=== PATIENT | male | born 1975 | race Caucasian/White ===

== ENCOUNTER 2022-10-28 09:50 | Emergency (ER) | payer BC, SELFPAY ==
[2022-10-28 09:55] VITALS: BP 172/89; PULSE 88; RESP 18; TEMP 36.7; O2SAT 95; BMI 42.7
--- NOTE | 2022-10-28 10:03 | ECG_ITS ---
The [facility] Test Date: 2022-10-28 Pat Name: PORTIA ZAIDI Department: Room: - Gender: Male [employer]: : 1975 Requested By: CRISELDA ALLRED Order Number: [id number] Reading MD: IAN MCCOLLUM Measurements Intervals [place] Rate: 84 P: 23 ID: [id number] QRS: 48 QRSD: 100 T: 51 QT: 364 QTc: 405 Interpretive Statements 1100 Sinus rhythm 2440 Incomplete right bundle branch block 7300 Indeterminate axis 9130 borderline ECG No previous ECG available for comparison Electronically Signed On 10-29-2022 7:18:53 EDT by IAN MCCOLLUM
--- NOTE | 2022-10-28 10:03 | XR_ITS ---
The [address] [address] Patient Name: PORTIA ZAIDI MRN: [id number] date: 1975 Sex: M Assigned Patient Location: ER Current Patient Location: ER Accession/Order Number: [id number] Exam Date: 10/28/2022 10:15 Report Date: 10/28/2022 10:29 At the request of: JARAD CHAVEZ Procedure: XR chest 1V EXAMINATION: XR chest 1V HISTORY: cp ; chest pain COMPARISON: XR chest 05/23/2021 FINDINGS: LUNGS: No significant pulmonary parenchymal abnormalities. VASCULATURE: No increased pulmonary vasculature. PLEURA: No pneumothorax, effusion, or pleural thickening. CARDIAC: No cardiomegaly or cardiac silhouette abnormality. MEDIASTINUM: No visible mass or adenopathy. BONES: No fracture or visible bone lesion. OTHER: Negative. XR/XR chest 1V IMPRESSION: 1. No acute cardiopulmonary process. Electronically authenticated by: PACHECO CLARK Date: 10/28/2022 10:29
--- NOTE | 2022-10-28 10:10 | ED_ITS ---
HPI - Chest Pain General Chief Complaint: Chest Pain Stated Complaint: POSS CARDIAC ISSUES Time Seen by Provider: 10/28/22 10:03 Source: patient Mode of arrival: walk-in History of Present Illness HPI narrative: Patient have history of diabetes type 2 is coming to the ER with 1 week history of chest pressure that comes and goes he mentioned that the pressure usually comes at night and taking deep breaths sometimes help with the pressure he denies any nausea vomiting or any difficulty breathing or coughing or any relation to movement He mentioned that he have a physical work usually and he is standing on his feet for some time he noticed some ankle swelling The patient also mentioned having some loose stool over the last week but no frequency and the patient denies any cardiac family history and he also denies any smoking cigarette history Related Data Home Medications Medication Instructions Recorded Confirmed ibuprofen 800 mg tablet 800 mg PO Q12H 10/28/22 10/28/22 lisinopril 10 mg tablet 10 mg PO QDAY 10/28/22 10/28/22 metformin 500 mg tablet 500 mg PO BID 10/28/22 10/28/22 Previous Rx's Medication Instructions Recorded famotidine 20 mg tablet (Pepcid) 20 mg PO BID #20 tabs 10/28/22 Allergies Allergy/AdvReac Type Severity Reaction Status Date / Time No Known Drug Allergies Allergy Verified 10/28/22 09:55 Review of Systems ROS Status of ROS 10 or more systems reviewed and unremarkable except as noted in history and below [facility] Medical History (Updated 10/28/22 @ 11:13 by Francoise Farias MD) Exam Narrative Exam Narrative: Nurses notes and vital signs reviewed and patient is not hypoxic. General: Well-appearing and in no apparent distress. Skin: Warm, dry, no pallor noted. No rash. Head: Normocephalic, atraumatic. Neck: Supple, non-tender. Eye: Pupils are equal, round and EOMI. No scleral icterus. Ears, Nose, Mouth, and Throat: TM are clear, no nasal mucosal hypertrophy. Oral mucosa is moist, no posterior oropharynx erythema, uvula is mid-line Cardiovascular: Regular Rate and Rhythm without murmur, gallop or rub. Respiratory: No accessory muscle use or respiratory distress. Lungs are clear to auscultation, no wheezing, rales or rhonchi Chest Wall: no tenderness Back: No midline thoracic or lumbar vertebral tenderness. No CVA tenderness Musculoskeletal: normal ROM, no calf or popliteal tenderness, no lower extremity edema/swelling GI: Abdomen is soft, non-distended. Normal bowel sounds. No masses appreciated. No tenderness to palpation. No rebound, guarding, or rigidity noted. Neurological: A&O x4. No cranial nerve dysfunction observed. No truncal ataxia. Moves all extremities. Sensation intact. Psychiatric: Cooperative and interactive. Normal mood and affect. Constitutional Vital Signs, click to edit/add: Last Vital Signs Temp 98.1 F 10/28/22 09:55 Pulse 88 10/28/22 09:55 Resp 18 10/28/22 09:55 BP 172/89 H 10/28/22 09:55 Pulse Ox 95 10/28/22 09:55 Course Vital Signs Vital signs: Vital Signs Temperature 98.1 F 10/28/22 09:55 Pulse Rate 88 10/28/22 09:55 Respiratory Rate 18 10/28/22 09:55 Blood Pressure 172/89 H 10/28/22 09:55 Pulse Oximetry 95 10/28/22 09:55 Temperature 98.1 F 10/28/22 09:55 Pulse Rate 88 10/28/22 09:55 Respiratory Rate 18 10/28/22 09:55 Blood Pressure 172/89 H 10/28/22 09:55 Pulse Oximetry 95 10/28/22 09:55 MDM - Chest Pain MDM Narrative Medical decision making narrative: The patient EKG showing sinus rhythm with a heart rate of [address] elevation or depression The patient CBC and chemistry showed no acute pathology his blood pressure was 140 systolic in the ER in another reading The patient troponin was negative and he was not actually having any pain right now The patient mentioned that the pain was after eating dinner last night and his presentation is mostly secondary to atypical acid reflux related pain Right now the patient was instructed about his risk factors including hyperlipidemia and morbid obesity and the fact that he need to follow-up with his primary care doctor for further evaluation management with the cardiac risk factors and he is to come back to the ER in case of any symptoms but he will be started on Pepcid with lifestyle modification advised to the patient The patient is to follow up with primary care physician in next 2-3 days or to return to the emergency department should any of the signs or symptoms worsen or new symptoms develop. The patient agrees with the following Diagnosis and Treatment plan and the patient will be discharged home. Lab Data Labs: Lab Results 10/28/22 Range/Units 10:12 WBC 8.7 (4.0-11.0) 10^3/uL RBC 4.77 (4.70-6.10) 10^6/uL Hgb 13.0 L (14.0-18.0) g/dL Hct 39.2 L (42.0-54.0) % MCV 82.2 (80.0-94.0) fL MCH 27.3 (25.9-34.0) pg MCHC 33.2 (29.9-35.2) g/dL RDW 13.9 (11.0-15.0) % Plt Count 267 (150-450) 10^3/uL MPV 10.0 (9.5-13.5) fL Neut % (Auto) 64.8 (43.0-75.0) % Lymph % (Auto) 22.3 (20.5-60.0) % [place] % (Auto) 7.0 (1.7-12.0) % Eos % (Auto) 4.6 (0.9-7.0) % Baso % (Auto) 0.6 (0.2-2.0) % Neut # (Auto) 5.7 (1.4-6.5) 10^3/uL Lymph # (Auto) 2.0 (1.2-3.8) 10^3/uL [place] # (Auto) 0.6 (0.3-0.8) 10^3/uL Eos # (Auto) 0.4 (0.0-0.7) 10^3/uL Baso # (Auto) 0.1 (0.0-0.1) 10^3/uL Abs Immat Gran (auto) 0.06 H (0.00-0.03) 10^3/uL Imm/Tot Granulo (auto) 0.7 H (0.0-0.5) % PT 10.1 (9.0-11.6) sec INR 0.95 Sodium 136 (136-145) mmol/L Potassium 4.4 (3.5-5.1) mmol/L Chloride 102 (98-107) mmol/L Carbon Dioxide 27.1 (21.0-32.0) mmol/L Anion Gap 11.3 BUN 10.0 (7.0-18.0) mg/dL Creatinine 0.72 (0.70-1.30) mg/dL Est GFR ( Amer) >60 (>=60) Est GFR (Non-Af Amer) >60 (>=60) BUN/Creatinine Ratio 13.9 Glucose 147 H (74-106) mg/dL Calcium 8.8 (8.5-10.1) mg/dL Total Bilirubin 0.3 (0.2-1.0) mg/dL AST 26 (15-37) U/L ALT 37 (16-63) U/L Alkaline Phosphatase 116 (46-116) U/L Troponin I High Sens 11.8 (4.0-76.1) pg/mL Total Protein 7.5 (6.4-8.2) g/dL Albumin 3.4 (3.4-5.0) g/dL Globulin 4.1 g/dL Albumin/Globulin Ratio 0.8 Discharge Plan Discharge Chief Complaint: Chest Pain Clinical Impression: Chest pain due to GERD Patient Disposition: Home, Self-Care Time of Disposition Decision: 11:12 Condition: Good Mode of Transportation: Private Vehicle Prescriptions / Home Meds: New famotidine [Pepcid] 20 mg tablet 20 mg PO BID Qty: 20 0RF No Action ibuprofen 800 mg tablet 800 mg PO Q12H metformin 500 mg tablet 500 mg PO BID lisinopril 10 mg tablet 10 mg PO QDAY Instructions: GERD (Gastroesophageal Reflux Disease) (ED), Esophageal Spasm (ED) Stand Alone Forms: Portal Instructions Referrals: CRISELDA ALLRED [Primary Care Provider] - 1 week
[2022-10-28 10:37] LABS: Basophils Absolute Auto 0.1 10^3/uL (0.0-0.1); Basophils Percent Auto 0.6 % (0.2-2.0); Eosinophils Absolute Auto 0.4 10^3/uL (0.0-0.7); Eosinophils Percent Auto 4.6 % (0.9-7.0); Hematocrit 39.2 % (42.0-54.0); Immature Granulocytes Abs Auto 0.06 10^3/uL (0.00-0.03); Immature Granulocytes Pct Auto 0.7 % (0.0-0.5); Lymphocytes Percent Auto 22.3 % (20.5-60.0); Mean Corpuscular HGB Conc 33.2 g/dL (29.9-35.2); Mean Corpuscular Hemoglobin 27.3 pg (25.9-34.0); Mean Corpuscular Volume 82.2 fL (80.0-94.0); Monocytes Absolute Auto 0.6 10^3/uL (0.3-0.8); Neutrophils Absolute Auto 5.7 10^3/uL (1.4-6.5); Neutrophils Percent Auto 64.8 % (43.0-75.0); Platelet Count 267 10^3/uL (150-450); Red Blood Count 4.77 10^6/uL (4.70-6.10); Red Cell Distribution Width 13.9 % (11.0-15.0); White Blood Count 8.7 10^3/uL (4.0-11.0)
[2022-10-28 10:43] LABS: Alanine Aminotransferase 37 U/L (16-63); Albumin Globulin Ratio 0.8; Albumin Level 3.4 g/dL (3.4-5.0); Alkaline Phosphatase 116 U/L (46-116); Anion Gap 11.3; Aspartate Amino Transferase 26 U/L (15-37); BUN Creatinine Ratio 13.9; Bilirubin Total 0.3 mg/dL (0.2-1.0); Calcium 8.8 mg/dL (8.5-10.1); Carbon Dioxide 27.1 mmol/L (21.0-32.0); Chloride 102 mmol/L (98-107); Estimated GFR (African America >60 (>=60); Estimated GFR (Non-African Ame >60 (>=60); Globulin 4.1 g/dL; Glucose 147 mg/dL (74-106); INR 0.95; Potassium 4.4 mmol/L (3.5-5.1); Prothrombin Time 10.1 sec (9.0-11.6); Sodium 136 mmol/L (136-145); Total Protein 7.5 g/dL (6.4-8.2)
[2022-10-28 10:46] LABS: Troponin I High Sensitivity 11.8 pg/mL (4.0-76.1)
== END 2022-10-28 11:20 | disposition home or self-care (01) ==
PROVIDERS: Emergency Provider Emergency Medicine; PCP Family Medicine
DX: K21.9 Gastro-esophageal reflux disease without esophagitis (principal); R07.9 Chest pain, unspecified; E11.9 Type 2 diabetes mellitus without complications; Z79.899 Other long term (current) drug therapy; Z79.84 Long term (current) use of oral hypoglycemic drugs
CPT/HCPCS: 36415; 71045; 80053; 84484; 85025; 85610; 93005; 99285